=== PATIENT | female | born 1935 | race Asian ===

== ENCOUNTER 2018-05-24 11:05 | Emergency (ER) | payer SELFPAY ==
[~2018-05-24] VITALS: Ht 144.8 cm; Wt 53.5 kg
[2018-05-24 11:15] VITALS: BP 131/78
[2018-05-24] MEDS ORDERED: BP MEDS (11:16)
[2018-05-24] MEDS ORDERED: Acetaminophen 500mg (ES) tab ORAL ONE (11:45)
--- NOTE | 2018-05-24 12:20 | Emergency Room Report ---
History of Present Illness General Chief Complaint: Upper Extremity Injury Source: Patient, Family Member Present Illness HPI This patient is accompanied by her son. She tripped and fell yesterday and fell onto her right hand and arm. She has pain in her right wrist. She also fell onto her left knee. She was able to break her fall. She did not have any head injury. She has no headache or neck pain. She has no chest pain or shortness of breath. She has no other injuries or complaints. Allergies: Coded Allergies: No Known Allergies (Unverified , 05/24/18) Patient History Past Medical History: see triage record, HTN Social History: Denies: smoking, alcohol use, drug use Reviewed Nursing Documentation: PMH: Agreed; PSxH: Agreed Nursing Documentation-PMH Hx Hypertension: Yes Review of Systems All Other Systems: negative except mentioned in HPI Physical Exam Vital Signs Date Time Temp Pulse Resp B/P (MAP) Pulse Ox O2 Delivery O2 Flow Rate FiO2 05/24/18 11:09 98.3 93 16 131/78 92 Room Air 98.2 Sp02 EP Interpretation: reviewed, normal General Appearance: no apparent distress, alert, GCS 15, non-toxic Head: normocephalic, atraumatic Eyes: bilateral eye normal inspection, bilateral eye PERRL ENT: hearing grossly normal, normal pharynx, no angioedema, normal voice Neck: full range of motion, supple/symm/no masses Respiratory: chest non-tender, lungs clear, normal breath sounds, no respiratory distress, no retraction, no accessory muscle use, speaking full sentences Cardiovascular #1: regular rate, rhythm, no edema Gastrointestinal: normal bowel sounds, non tender, soft, non-distended, no guarding, no rebound Rectal: deferred Genitourinary: normal inspection, no CVA tenderness Musculoskeletal: back normal, gait/station normal, other - R. wrist with swelling and obvious deformity. L. knee with small amount of ecchymosis, non- tender, no swelling. All other MSK wnl. Neurologic: alert, oriented x3, responsive, motor strength/tone normal, sensory intact, speech normal Psychiatric: judgement/insight normal, memory normal, mood/affect normal, no suicidal/homicidal ideation Skin: normal color, no rash, warm/dry, well hydrated Medical Decision Making Diagnostic Impression: Primary Impression: Distal radius fracture, right ER Course This patient has a distal radius fracture. She is placed in a sugar tong splint given a sling. The patient is from [place]. She is traveling on Traveler' s insurance. The family is concerned as she will need an orthopedic follow-up. I did give them a list of the local orthopedic clinics. The patient and her family were instructed to follow-up next week with an supervisory investigative specialist. They were educated that she will need repeat x-rays, casting and possibly need to undergo surgery. Although, the fracture is nondisplaced but is impacted and includes the joint. The patient and her family were given return precautions and follow-up instructions. Other X-Ray Diagnostic Results Other X-Ray Diagnostic Results : X-Ray ordered: R. wrist xray # of Views/Limited Vs Complete: Complete Indication: Pain EP Interpretation: Yes Interpretation: other - Distal radius fx. Non-displaced. Intra-articular. See official report. Impression: Other - See above. Electronically Signed by: Shelli Last Vital Signs Date Time Temp Pulse Resp B/P (MAP) Pulse Ox O2 Delivery O2 Flow Rate FiO2 05/24/18 11:40 98.2 05/24/18 11:15 93 16 131/78 92 Room Air Disposition: HOME, SELF-CARE Condition: Improved Deborah Voss DO May 24, 2018 12:20
--- NOTE | 2018-05-24 12:32 | Diagnostic Imaging Report ---
History: TRAUMA Exam: XR RIGHT WRIST 3 views Comparison: None available FINDINGS: Findings are concerning for acute distal radius intra-articular impaction fracture. Soft tissue swelling is present about the wrist. No dislocation. IMPRESSION: Findings are concerning for acute distal radius intra-articular impaction fracture. Soft tissue swelling is present about the wrist. No dislocation.
[2018-05-24 13:24] VITALS: BP 131/78
== END 2018-05-24 13:25 | disposition home or self-care (01) ==
LOC: EMR 11:30
DX: S52.571A Other intraarticular fracture of lower end of right radius, initial encounter for closed fracture (principal); W01.0XXA Fall on same level from slipping, tripping and stumbling without subsequent striking against object, initial encounter; Y92.9 Unspecified place or not applicable; I10 Essential (primary) hypertension
CPT/HCPCS: 99283